=== PATIENT | male | born 1955 | race African-American/Black ===

== ENCOUNTER 2019-05-12 06:38 | Inpatient (IN) | payer OTHER ==
[~2019-05-12] VITALS: Ht 180.3 cm; Wt 108.9 kg
[2019-05-12] VITALS (15 sets, daily range): BP systolic 142–190; BP diastolic 83–105
--- NOTE | 2019-05-12 03:00 | Pre-op HX & Phy Repo 2 SIG ---
DATE OF ADMISSION: 05/12/2019 ATTENDING PHYSICIAN: Boris Gonzalez M.D. REASON FOR ADMISSION: Anterior cervical discectomy and fusion. The patient is scheduled for surgery on 05/12/2019. HISTORY OF PRESENT ILLNESS: The patient is a 64-year-old male, who was in his usual state of health until July 23, 2017, when he reportedly sustained a fall while visiting a friend's house. Due to the fall the patient suffered injury to his neck, back, and left lower extremity. The patient currently complains of left arm pain, left lower extremity pain, and numbness of the left hand. He has been evaluated by Dr. Gonzalez and diagnosed with C-spine injury and disk disease. He is currently scheduled for anterior cervical discectomy and fusion. The patient denies history of coronary artery disease, but has been complaining of substernal chest pain and chest tightness. In view of his symptoms of chest pain, in preparation for his upcoming surgery, he underwent an exercise echo study, which did not show evidence of significant ischemia. The patient exercised for a short duration of 4 minutes, had frequent PVCs, but did not manifest ischemia by EKG or by echocardiogram, and the study was non-ischemic with poor exercise tolerance. Patient has been started on Metoprolol in preparation for his surgery. The patient walks about two times a week, but does not exercise on a regular basis. PAST MEDICAL HISTORY: 1. Hypertension. 2. Status post removal of a cyst from his back. 3. Obesity ALLERGIES: None known. MEDICATIONS: Include baby aspirin, benazepril/hydrochlorothiazide 20/25 daily, and metoprolol 50 mg daily which has been started recently. SOCIAL HISTORY: The patient is single, has one child. 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 He does not smoke and does not drink. REVIEW OF SYSTEMS: GENERAL: Complains of weight gain. He has occasional fever without chills or night sweats. HEENT: Denies headache or sinus problem. PULMONARY: Denies cough or sputum production. CARDIOVASCULAR: Complains of chest pain as described above. Denies palpitations, PND, orthopnea, or lower extremity edema. GASTROINTESTINAL: Denies dysphagia, dyspepsia, abdominal pain, nausea, vomiting, diarrhea, or constipation. GENITOURINARY: Denies dysuria or hematuria. MUSCULOSKELETAL: As noted above. NEUROLOGIC: Complains of paresthesias of the left upper extremity. PHYSICAL EXAMINATION: VITAL SIGNS: Blood pressure was 140/90, heart rate 70, temperature afebrile. Weight is 246 pounds, height is 5 feet 9 inches, and BMI is 36.5. HEENT: Unremarkable. NECK: Nontender, but has limited range of motion. LUNGS: Clear without rales or wheezes. CARDIAC: S1 and S2 are normal without S3 or S4. Jugular venous pressure is normal. ABDOMEN: Soft and nontender with obesity. Bowel sounds are present. EXTREMITIES: Without cyanosis, clubbing, or edema. DIAGNOSTIC AND LABORATORY DATA: Echocardiogram showed normal LV wall motion and ejection fraction with mild aortic insufficiency. Exercise echo was nonischemic, but frequent PVCs are noted during exercise. Laboratory data reviewed. Electrolytes are within normal limits. Liver panel is within normal limits. Creatinine is 1.6. Cholesterol is 168, LDL is 100. Thyroid panel within normal limits. Hemoglobin is 12.6, hematocrit 38.0. PT and PTT within normal limits. Hemoglobin A1c is 5.6. Urine is negative. Nasal culture showed light growth of MRSA, which is sensitive to Cipro, tetracycline, clindamycin, and vancomycin. EKG showed sinus bradycardia at 56 beats per minute with borderline left axis deviation and possible left ventricular hypertrophy. IMPRESSION: 1. Hypertension with moderate control. 2. Obesity. 3. Chest pain, nonischemic. 4. PVCs on exercise echo study. 5. Status post slip and fall with C-spine injury and radiculopathy. 6. Positive nasal culture for mRSA- most likely due to colonization PLAN AND SUGGESTIONS: The patient has been started on metoprolol-XL 50 mg daily in view of hypertension and PVCs in preparation for upcoming surgery. He will be continued on his usual medications and is stable to proceed with surgery. He has been advised to stop aspirin and nonsteroidal anti-inflammatories one week prior to surgery. The patient will be followed postoperatively and will resume oral medications and we will add additional medications as necessary. Presence of light growth of MRSA is most probably due to colonization and does not require treatment at this time. If necessary, isolation precaution will be instituted while in the hospital. Dr. Gonzalez, thank you for allowing me to participate in the care of this patient. I will be happy to follow with you as necessary. Mychal Son M.D. DR: ADAM JOB#: [id number] CC: Mychal Son M.D.; Fax#: [phone] [facility]
[~2019-05-12 06:38] MED LIST: BENAZEPRIL HCL20 MG ORAL; METOPROLOL SUCC50 MG ORAL
[2019-05-12] MEDS ORDERED: ceFAZolin sod 2 GM in D5W 110 ML IVPB ONE (07:00)
--- NOTE | 2019-05-12 07:29 | Pre-Procedure Note/Attestation ---
Pre-Procedure Note/Attestation Complete Prior to Procedure Planned Procedure: not applicable Procedure Narrative: ACDF C34,45,56 Indications for Procedure Pre-Operative Diagnosis: herniation C34,45,56 Attestation I attest that I discussed the nature of the procedure; its benefits; risks and complications; and alternatives (and the risks and benefits of such alternatives ), prior to the procedure, with the patient (or the patient's legal medical office representative). I attest that, if there was a reasonable possibility of needing a blood transfusion, the patient (or the patient's legal medical office representative) was given the [facility] standardized written summary, pursuant to the David [place] Blood Safety Act ([place] Health and Safety Code # 1645, as amended). I attest that I re-evaluated the patient just prior to the surgery and that there has been no change in the patient's H&P, except as documented below: Boris Gonzalez MD May 12, 2019 07:29
[2019-05-12] MEDS ORDERED: HYDROcodone/Acetamin 7.5/325 tab ORAL PRN ×3 (07:30→08:30)
[2019-05-12] MEDS ORDERED: Morphine Sulfate 4mg/ml Inj (IV USE ONLY) IV PRN (07:30)
[2019-05-12] MEDS ORDERED: Chloraseptic Spray 20mL Bottle ORAL PRN (07:30)
[2019-05-12] MEDS ORDERED: Naloxone 0.4mg/ml Inj IVP PRN (07:30)
[2019-05-12] MEDS ORDERED: Metoclopramide 10mg/2ml Inj IVP PRN ×2 (07:30→08:30)
[2019-05-12] MEDS ORDERED: HYDROmorphone 1mg/ml Carpuject IVP PRN (07:30)
[2019-05-12] MEDS ORDERED: Milk of Magnesia 30ml Ud ORAL PRN (07:30)
[2019-05-12] MEDS ORDERED: HYDROcodone/Acetamin 5/325 tab ORAL PRN ×2 (07:30→08:30)
[2019-05-12] MEDS ORDERED: Morphine Sulfate 2mg/ml Inj(IV/IM USE ONLY) IV PRN (07:30)
--- NOTE | 2019-05-12 07:30 | Brief Operative Note ---
Immediate Post Operative Note Operative Note Chief Complaint: herniation radiculopathy Pre-op Diagnosis: herniation C34,45,56 Procedure: ACDF C34,45,56 Post-op Diagnosis: same as pre-op Findings: consistent w/pre-op dx studies Surgeon: Lisa Sewer Digger: Antonio Anesthesiologist: Anesthesia: general Specimen: none Complications: none Condition: stable Fluids: IVF Estimated Blood Loss: minimal Drains: none Implant(s) used?: Yes - Nuvasive interlock C x3, screws 13mmx9 Boris Gonzalez MD May 12, 2019 07:30
[2019-05-12] MEDS ORDERED: Bupivacaine w/Epi 0.5% 30ml Vial INJ ONE (07:50)
[2019-05-12] MEDS ORDERED: Bacitracin 50000 Units Vial ONE (07:50)
[2019-05-12] MEDS ORDERED: Thrombin 5000 units TOPIC ONE (07:50)
[2019-05-12] MEDS ORDERED: Gelfoam Size TOPIC ONE (07:50)
[2019-05-12] MEDS ORDERED: Vancomycin 1gm vial IVPB ONE (07:50)
[2019-05-12] MEDS ORDERED: LR 1000ml 1,000 ML IVLG SCH (08:20)
--- NOTE | 2019-05-12 08:22 | Anethesia Preoperative Eval ---
Anesthesia Pre-op PMH/ROS General Date of Evaluation: May 12, 2019 Time of Evaluation: 09:47 Anesthesiologist: Lyla ASA Score: ASA 3 Mallampati Score Class I : Soft palate, uvula, fauces, pillars visible Class II: Soft palate, uvula, fauces visible Class III: Soft palate, base of uvula visible Class IV: Only hard plate visible Mallampati Classification: Class III Surgeon: Lisa Diagnosis: Neck Pain Surgical Procedure: ACDF C3-4,C4-5,C5-6 Family History: no anesthesia problems Allergies: Coded Allergies: No Known Allergies (Unverified , 05/12/19) Medications: see eMAR Patient NPO?: Yes NPO Date: May 11, 2019 NPO Time: 1999 Past Medical History Cardiovascular: Reports: HTN Other: obesity - BMI 35 Anesthesia Pre-op Phys. Exam Physician Exam Last Vital Signs Date Time Temp Pulse Resp B/P (MAP) Pulse Ox O2 Delivery O2 Flow Rate FiO2 05/12/19 07:23 Room Air 05/12/19 07:18 97.3 50 19 142/83 (102) 100 Constitutional: NAD Neurologic: CN 2-12 intact Cardiovascular: RRR Respiratory: CTA Gastrointestinal: S/NT/ND Airway Exam Mallampati Score: Class III MO: limited ROM: limited Teeth: missing, intact Anesthesia Pre-op A/P Risk Assessment & Plan Assessment: ASA 3 Plan: GA, SED, GlideScope Go Status Change Before Surgery: No Pre-Antibiotics Dru Grams Ancef IV Given Within 1 Hr of Incision: Yes Time Given: 10:01 Jorje Arita MD May 12, 2019 08:22
[2019-05-12] MEDS ORDERED: Lidocaine 1% MPF 10mg/ml 5ml ONE (08:24)
[2019-05-12] MEDS ORDERED: Lidocaine 1% Plain 30 ml INJ ONE ×2 (08:24→11:25)
[2019-05-12] MEDS ORDERED: Sodium Chloride 10ml vial INJ ONE (08:24)
[2019-05-12] MEDS ORDERED: Labetalol 5mg/ml 20ml vial IV PRN (08:30)
[2019-05-12] MEDS ORDERED: Hydromorphone 0.5mg/0.5ml inj IVP PRN (08:30)
[2019-05-12] MEDS ORDERED: DiphenhydrAMINE 50mg/ml Inj IVP PRN (08:30)
[2019-05-12] MEDS ORDERED: Ketorolac 30mg Inj IV PRN ×2 (08:30)
[2019-05-12] MEDS ORDERED: oxyCODONE HCL/Acetaminophen 5/325mg ORAL PRN (08:30)
[2019-05-12] MEDS ORDERED: Acetaminophen (Non formulary) 100 ML IV ONE (08:30)
[2019-05-12] MEDS ORDERED: Meperidine 50mg/ml Inj(FOR RIGORS ONLY) IVP PRN (08:30)
[2019-05-12] MEDS ORDERED: fentaNYL 100 mcg/2 mL IV PRN (08:30)
[2019-05-12] MEDS ORDERED: LORazepam Inj 2mg/ml 1ml IV PRN (08:30)
[2019-05-12] MEDS ORDERED: Midazolam 2mg/2ml Inj IVP PRN (08:30)
[2019-05-12] MEDS ORDERED: Atropine Sulfate 0.4mg/ml inj IVP PRN (08:30)
[2019-05-12] MEDS ORDERED: Ketamine 500mg Inj ONE (08:34)
[2019-05-12] MEDS: Docusate 100mg cap ORAL SCH ×2 (09:00→18:26)
[2019-05-12] MEDS ORDERED: Zemuron 50mg/5ml Inj IV ONE (09:04)
--- NOTE | 2019-05-12 09:52 | Immediate Post-Op Evaluation ---
Immediate Post-Op Evalulation Immediate Post-Op Evalulation Procedure: ACDF C3-4,C4-5,C5-6 Date of Evaluation: May 12, 2019 Time of Evaluation: 13:42 IV Fluids: 1100 LR Blood Products: 0 Estimated Blood Loss: 50 Urinary Output: 300 Blood Pressure Systolic: 188 Blood Pressure Diastolic: 103 Pulse Rate: 73 Respiratory Rate: 16 O2 Sat by Pulse Oximetry: 99 Temperature (Fahrenheit): 97.4 Pain Score (1-10): 2 Nausea: No Vomiting: No Complications 0 Patient Status: awake, reacts, patent, extubated, none Hydration Status: adequate Dru Grams Ancef IV Given Within 1 Hr of Incision: Yes Time Given: 10:01 Jorje Arita MD May 12, 2019 09:52
[2019-05-12] MEDS ORDERED: Sterile Water Irrig 1000ml IRRIG ONE (10:00)
[2019-05-12] MEDS ORDERED: LR 1000ml ONE (10:00)
[2019-05-12] MEDS ORDERED: NS Irrig 1000ml ONE (10:00)
[2019-05-12] MEDS ORDERED: Neostigmine 1mg/ml 10ml Inj ONE (10:00)
[2019-05-12] MEDS ORDERED: Phenylephrine 10mg/ml Vial ONE (10:18)
[2019-05-12] MEDS ORDERED: Glycopyrrolate 0.2mg/ml 1ml Vial ONE ×2 (10:31→12:41)
--- NOTE | 2019-05-12 10:34 | NUR ---
CASE MANAGEMENT:REVIEW 64 YR OLD MALE HERE FOR ELECTIVE SURGERY SI: HERNIATION RADICULOPATHY 97.3 50 19 142/83 100% ON RA IS: TO SURGERY FOR ACDF C34,45,56 IV ANCEF Q8HRS IV DECADRON Q6HRS : TO MED/SURG 3 EAST POST OP
[2019-05-12] MEDS ORDERED: fentaNYL 100 mcg/2 mL IV ONE (12:03)
--- NOTE | 2019-05-12 14:50 | NUR ---
NURSE NOTES: Patient arrived on unit via hospital bed. Stable. Denies pain. Surgical site clean and dry. Pt receiving oxygen as ordered. Patient oriented to room, call light, and unit. Patient encouraged to use call light for assistance, verbalized understanding. Patient is in bed in locked and lowest position with call light within reach. Will continue to monitor.
[2019-05-12] MEDS: NS w/KCl 20mEq 1000ml 1,000 ML IV SCH (16:35)
--- NOTE | 2019-05-12 16:47 | Diagnostic Imaging Report ---
INDICATION: Pain, intraoperative TECHNIQUE: Intraoperative imaging Fluoroscopy time: 3.7 seconds Total dose: 0.98462 mGym2 Total number of images: 4 COMPARISON: None FINDINGS: Intraoperative images demonstrates surgical needle is projected over C3 and C5. Subsequent image demonstrates surgical tool projecting at the level of C5-6 disc. Subsequent images document placement of anterior fusion hardware at C3-4, C4-5 and C5-6. IMPRESSION: Intraoperative imaging, as described
[2019-05-12] MEDS: Dexamethasone 4mg/ml vial IVP SCH (18:26)
[2019-05-12] MEDS: ceFAZolin sod 1 GM in D5W 55 ML IV SCH (18:26)
--- NOTE | 2019-05-12 19:00 | Operative Note - Dictated ---
DATE OF OPERATION: 05/12/2019 SURGEON: Boris Gonzalez MD, Orthopaedic Spine Surgeon. HEAD OF MATHEMATICS: Andrea Alvarez M.D. PREOPERATIVE DIAGNOSES: 1. Intractable neck pain. 2. Radiculopathy. 3. Herniation, C3-C4, C4-C5, C5-C6. 4. Neural foraminal stenosis, C3-C4, C4-C5, C5-C6. 5. Stenosis. POSTOPERATIVE DIAGNOSES: 1. Intractable neck pain. 2. Radiculopathy. 3. Herniation, C3-C4, C4-C5, C5-C6. 4. Neural foraminal stenosis, C3-C4, C4-C5, C5-C6. 5. Stenosis. PROCEDURE PERFORMED: 1. Anterior cervical discectomy and fusion of C3-C4 using NuVasive Interlock-C, size 6 with a total of three screws of 13 mm, with the insertion of 1 mL of allograft Osteocel bone; anterior cervical discectomy and fusion of C4-C5 using NuVasive Interlock-C, size 6 with a total of three screws of 13 mm, with the insertion of 1 mL of allograft Osteocel bone; anterior cervical discectomy and fusion of C5-C6 using NuVasive Interlock-C, size 6 with a total of three screws of 13 mm, with the insertion of 1 mL of allograft Osteocel bone. 2. Use of intraoperative microscope. 3. Motor-evoked potential monitoring. 4. Somatosensory-evoked potential monitoring. 5. Supervision and interpretation of fluoroscopy. COMPLICATIONS: None. ANESTHESIA: General. ESTIMATED BLOOD LOSS: Less than 100 mL. INDICATIONS FOR SURGERY: This patient is a 64-year-old male who has a history of intractable neck pain; radiculopathy; herniation, C3-C4, C4-C5, C5-C6; neural foraminal stenosis, C3-C4, C4-C5, C5-C6; stenosis. We tried a course of conservative management, but despite this course, there was still a significant component of persistent, recalcitrant neck pain and arm pain. The MRI demonstrated significant neural foraminal compromise secondary to disc herniations at C3-C4, C4-C5, C5-C6. We had a long discussion with Rogerio regarding the risks and benefits of surgery. Our discussion included but was not limited to nonoperative management, chiropractic management, another epidural steroid injection as well as definitive management in the form of surgery. We recommended an anterior cervical discectomy and fusion of C3-C4, C4-C5, C5-C6 as final definitive management. We reviewed the risks and benefits of surgery with the patient. Our discussion included a comprehensive review of the clinical issues and the nature of the clinical decision. We reviewed the alternatives, including doing nothing. The patient elected to proceed accordingly with anterior cervical discectomy and fusion of C3-C4, C4-C5, C5-C6. We had a long discussion regarding the risks, alternatives, and benefits of surgery. Our description of the risks included a discussion in person as well as a signed consent which detailed all pertinent risks from the procedure itself. Briefly, our discussion included but was not limited to infection, bleeding, pseudarthrosis, spinal cord injury, neurovascular injury, dural tear, CSF leak, neuropathy, paralysis, permanent weakness/drop foot/drop arm, paresthesias, blindness, palsy, and weakness. The patient understood there may be a need for a revision surgery or additional procedures. Approach-related complications including dysphonia, dysphagia, blindness, permanent vocal cord and neural injury, hematoma, swallowing and breathing difficulty. Medical complications were reviewed including liver, kidney, shock, cardiopulmonary failure, anesthesia complications including , swelling, damage to the musculature, larynx/voice injury or loss, esophagus/throat, trachea, blood vessels and muscles/muscular sprain and lungs/pneumothorax during this surgical procedure; injury to deeper structures may be temporary or permanent. After this review of risks, the patient understood these and elected to proceed. A written and verbal consent was given. We discussed the pros and cons of all the alternatives. We discussed the uncertainties associated with the decision. Afterward, I assessed the patient's understanding and explored his preferences. All questions were answered and no guarantees were given. Medical clearance was obtained prior to surgery. INTRAOPERATIVE FINDINGS: At C3-C4, this was the worst of the levels. At this level, there was appropriate disc height. There was significant altercation of the posterior longitudinal ligament noted with severe impaction and pressure on the thecal sac and spinal cord posterior to this. This level was considerably difficult to completely and thoroughly decompress, however, upon decompression, there was sufficient space made available for the thecal sac, spinal cord, and neural foramina bilaterally. At C4-C5, the disc itself was soft, spongy, appropriate disc height. There was a tear noted in the posterior longitudinal ligament, which was left-sided. Posterior to this tear, we noted severe compression on the neural foraminal elements again left-sided. There was also a large bony shell which appeared to be a reaction as a result of some type of traumatic event on the posterior longitudinal ligament/disc/uncinate process, which occupied from the line extending from the midpoint of the vertebral body to the lateral foramen on the left. At C5-C6, there was appropriate disc height with a spongy disc inside. This disc was not calcified. This disc demonstrated . DESCRIPTION OF PROCEDURE: Under the benefit of general endotracheal anesthesia and with the assistance of the entire operative team, the patient was moved from the rney onto the operative table in the supine position. The head was secured and carefully positioned appropriately. Bilateral arms were secured with Gel Pads and foam and all bony prominences were padded. For the bilateral lower extremities, SCD and CHANTAL hose were placed for DVT prophylaxis. A surgical timeout was called which corroborated our planned procedure of anterior cervical discectomy and fusion of C3-C4, C4-C5, C5-C6. Preoperative antibiotics were administered within 30 minutes of the incision for antibiotic prophylaxis. Using lateral fluoroscopic radiography, the operative levels were delineated. Next, the wound was prepped and draped with chlorhexidine and sterile drapes. An incision was based on lateral fluoroscopy and we centered our incision at the C3-C4, C4-C5, C5-C6 interspace and next using a standard Levine-Yates anterior-based approach, the incision was taken down through the skin and subcutaneous tissues until the vertebral bodies and their corresponding disc spaces were visualized. A needle was placed into the interspace to confirm placement of the operative interspace and we performed the remainder of procedure under microscopic visualization. Next, using bipolar and Bovie cautery to ensure meticulous hemostasis, the longus colli was mobilized bilaterally and retractors were placed deep to the longus colli bilaterally to address retraction. Next, we turned our attention to the radical anterior discectomy. This was initially performed at C5-C6 first by using a 15 blade scalpel followed by narrow pituitaries and a Microsect 5-B curette was used to denude the endplate of all cartilaginous tissue. Next, using a [employer] AM8 drill bit, the partial vertebrectomy was performed in a dpvx-co-vhil and iojjj-cg-cuqxs fashion, and ultimately the posterior uncinate joints bilaterally and posterior osteophytic lips and margins causing central and lateral impingement were carefully denuded until visualization of the posterior longitudinal ligament was possible. An endplate preparation was performed in the exact same fashion using an intervertebral program clinician, sequential distraction was obtained throughout the disc space. We saw a tear/rent in the PLL and this was carefully mobilized and dissected using a Microsect 1-B curette until we visualized a broad-based disc herniation with compression of the spinal cord as well as neural foramina which was left-sided. This neural foraminal compression was carefully resected using a Kerrison-1 and Kerrison-2 rongeurs until complete decompression of the spinal cord was visualized and complete decompression of the neural foramina and nerve root therein as well as the axilla and lateral margin of the nerve root was visualized and subsequently completely decompressed. The family was notified at one-hour intervals throughout the procedure to provide for consistent updates. Next, we turned our attention to the radical anterior discectomy at the C4-C5 level, performed first by using a 15 blade scalpel followed by narrow pituitaries and a Microsect 5-B curette was used to denude the endplate of all cartilaginous tissue. Next, using a [employer] AM8 drill bit, the partial vertebrectomy was performed in a hrgt-ov-sxcl and ehued-gy-qxiiy fashion, and ultimately the posterior uncinate joints bilaterally and posterior osteophytic lips and margins causing central and lateral impingement were carefully denuded until visualization of the posterior longitudinal ligament was possible. An endplate preparation was performed in the exact same fashion using an intervertebral program clinician, sequential distraction was obtained throughout the disc space. We saw a tear/rent in the PLL and this was carefully mobilized and dissected using a Microsect 1-B curette until we visualized a broad-based disc herniation with compression of the spinal cord as well neural foramina which was left-sided. This neural foraminal compression was carefully resected using a Kerrison-1 and Kerrison-2 rongeurs until complete decompression of the spinal cord was visualized and complete decompression of the neural foramina and nerve root therein as well as the axilla and lateral margin of the nerve root was visualized and subsequently completely decompressed. Next, we turned our attention to the radical anterior discectomy at the C3-C4 level, performed first by using a 15 blade scalpel followed by narrow pituitaries and a Microsect 5-B curette was used to denude the endplate of all cartilaginous tissue. Next, using a [employer] AM8 drill bit, the partial vertebrectomy was performed in a rblf-ap-gbpe and tjhkg-mn-iqkoy fashion, and ultimately the posterior uncinate joints bilaterally and posterior osteophytic lips and margins causing central and lateral impingement were carefully denuded until visualization of the posterior longitudinal ligament was possible. An endplate preparation was performed in the exact same fashion using an intervertebral program clinician, sequential distraction was obtained throughout the disc space. We saw a tear/rent in the PLL and this was carefully mobilized and dissected using a Microsect 1-B curette until we visualized a broad-based disc herniation with compression of the spinal cord as well neural foramina which was left-sided. This neural foraminal compression was carefully resected using a Kerrison-1 and Kerrison-2 rongeurs until complete decompression of the spinal cord was visualized and complete decompression of the neural foramina and nerve root therein as well as the axilla and lateral margin of the nerve root was visualized and subsequently completely decompressed. We next turned our attention towards trialing our implant within the disc space. We initially tried size 5 and afterwards size 6 trial from the NuVasive system at each level, which appeared to be appropriate under AP and lateral fluoroscopy as well as in terms of its height, depth, width, and lack of toggle. The PEEK (polyetheretherketone) interbody cages were then both packed with allograft bone from Osteocel and local autograft bone matrix. Next, these were then carefully advanced and secured into their intervertebral spaces under direct visualization and with supervision of AP and lateral fluoroscopic views. This was then performed at the next level, C3-C4. We initially tried size 5 and afterwards size 6 trial from the NuVasive system at this level, which appeared to be appropriate under AP and lateral fluoroscopy as well as in terms of its height, depth, width, and lack of toggle. The PEEK (polyetheretherketone) interbody cages were then both packed with allograft bone from Osteocel and local autograft bone matrix. Next, these were then carefully advanced and secured into their intervertebral spaces under direct visualization and with supervision of AP and lateral fluoroscopic views. We next turned our attention towards plating. Plating was performed at C5-C6 with NuVasive Interlock-C plating system. A total of three screws, size 13 mm in length were inserted and confirmed under AP and lateral fluoroscopy and confirmed to be in excellent position. This was then performed at the next level, C4-C5. Plating was performed with NuVasive Interlock-C plating system. A total of three screws, size 13 mm in length were inserted and confirmed under AP and lateral fluoroscopy and confirmed to be in excellent position. This was then performed at the next level, C3-C4. Plating was performed with NuVasive Interlock-C plating system. A total of three screws, size 13 mm in length were inserted and confirmed under AP and lateral fluoroscopy and confirmed to be in excellent position. After a finger sweep, we confirmed removal of all sponges. The retractor was removed and we next turned our attention to meticulous hemostasis with FloSeal and bipolar cautery. After the sponge and needle count was again found to be correct with our second count, we next turned our attention to closure. The wound was again copiously irrigated with antibiotic-impregnated saline. Closure consisted of 4-0 clear nylon for the platysma, and 6-0 clear nylon for the superficial skin. Final skin closure and dressings consisted of Dermabond. Prior to final closure, a final radiograph was obtained which demonstrated the hardware was intact with excellent position throughout. The patient tolerated the procedure well. The patient was carefully extubated after the conclusion of surgery. We discussed the findings of the surgery with the family upon completion of the case. At this point, the patient was transferred to the spine floor for further observation. Boris Gonzalez M.D. DR: Gonzalo JOB#: [id number] CC:
--- NOTE | 2019-05-12 19:30 | NUR ---
NURSE NOTES:Patient received from ANGELA Ortega Patient denies any pain at this time . no s/s of distress noted . anterior cervical surgical dressing C/D/I .Rfa g#18 NS WITH KCL 20 MEQ at 100 cc /hr infusing well . Patient uses urinals and voided freely to yellow urine . Patient on Bilateral lower Extremities ONSCDS in place .IS at bedside patient tolerating well.Safety/ fall precautions call light within reach . bed in low position . will continue to monitor. Addendum: 05/12/19 at 2318 by ORLANDO CRAMER LVN Patient on o2 2l via n/c on and anterior cervical surgical site continuous ice pack in place.
--- NOTE | 2019-05-12 19:30 | NUR ---
HAND-OFF: Report given to Samira DENG. Patient is stable.
--- NOTE | 2019-05-12 20:52 | NUR ---
NURSE NOTES:Patient vital sign reassess t 7 Addendum: 05/13/19 at 0513 by ORLANDO CRAMER LVN pls disregards this notes .
--- NOTE | 2019-05-12 20:52 | NUR ---
NURSE NOTES:Patient vital sign reassess T 97.2 P68/MIN. R18/MIN. B/P 159/88 mmHG SPO2 100% . will continue to monitor .
[2019-05-12] MEDS ORDERED: Metoprolol Succinate XL 50mg tab ORAL SCH (20:57)
--- NOTE | 2019-05-12 21:00 | NUR ---
NURSE NOTES:Patient B/P ELEVATED 181/84 mmhg R 20 /MIN. P69/MIN. T97.0 SPO2 98%. CALL DR. Gonzalez. Boris Notified with new blood pressure medications orders And carried out. and stated he will call DR. Valeria Garcia..
[2019-05-12] MEDS: Morphine Sulfate 4mg/ml Inj (IV USE ONLY) IV PRN (23:08)
--- NOTE | 2019-05-12 23:20 | NUR ---
NURSE NOTES:Patient voided via urinals 300 cc patient stated I have difficulty of urination . Notified DR. Lisa PETERSEN and received new orders bladder scan and straight cath , carried out
[2019-05-13 00:15] VITALS: BP 156/80
[2019-05-13] MEDS: Dexamethasone 4mg/ml vial IVP SCH ×3 (00:19→12:13)
--- NOTE | 2019-05-13 00:58 | NUR ---
NURSE NOTES:DR. Huy Horta Call and notified blood pressure BP 159/88 mm hg P68/MIN. 18/ min. . T 97.2 at 20:52 pm after patient taking B/P meds and notified PVR scan 568 ML and straight cath done, obtained 550 ml of clear yellow urine.No new orders given.
[2019-05-13] MEDS: NS w/KCl 20mEq 1000ml 1,000 ML IV SCH ×2 (01:28→12:00)
[2019-05-13] MEDS: ceFAZolin sod 1 GM in D5W 55 ML IV SCH ×2 (02:06→11:04)
[2019-05-13 04:00] VITALS: BP 157/79
[2019-05-13] MEDS: Morphine Sulfate 4mg/ml Inj (IV USE ONLY) IV PRN (04:59)
--- NOTE | 2019-05-13 05:14 | NUR ---
NURSE NOTES:Patient voided 300 cc freely to yellow urine at this time .will continue to monitor.
--- NOTE | 2019-05-13 07:15 | NUR ---
HAND-OFF: Report given to KARLEE SANFORD R.N.
--- NOTE | 2019-05-13 07:46 | NUR ---
NURSE NOTES: Received report from ISH Hogan. Pt a/o x 4, in bed. No respiratory distress noted. Denies any pain at this time. Neck surgical dressing site is C/D/I. Rt FA is patent. Regular IV is running at this time. Bed in lowest position, call light within reach. Will continue to monitor.
[2019-05-13 08:00] VITALS: BP 162/82
[2019-05-13] MEDS ORDERED: Metoprolol Succinate XL 50mg tab ORAL SCH (09:00)
[2019-05-13] MEDS ORDERED: Benazepril 10mg tab ORAL SCH (09:00)
--- NOTE | 2019-05-13 09:22 | 48 Hour Post Anesthesia Eval ---
Post Anesthesia Evaluation Procedure: ACDF C3-4,C4-5,C5-6 Date of Evaluation: May 13, 2019 Time of Evaluation: 09:21 Blood Pressure Systolic: 148 0: 78 Pulse Rate: 68 Respiratory Rate: 20 Temperature (Fahrenheit): 97.6 O2 Sat by Pulse Oximetry: 98 Airway: patent Nausea: No Vomiting: No Pain Intensity: 2 Hydration Status: adequate Cardiopulmonary Status: stable Mental Status/LOC: patient returned to baseline Follow-up Care/Observations: n/a Post-Anesthesia Complications: none Follow-up care needed: ready to discharge Silver Moore MD May 13, 2019 09:22
[2019-05-13] MEDS: Docusate 100mg cap ORAL SCH (09:41)
[2019-05-13 12:00] VITALS: BP 137/75
--- NOTE | 2019-05-13 12:23 | NUR ---
PT Note Patient was educated on cervical spine care, safety precautions, HEP. Patient was given a copy of the HEP's. Patient is independent in mobility and gait without any AD. No further PT needed at this time. Addendum: 05/13/19 at 1224 by SUREKHA BOO PT Amended: Links added.
--- NOTE | 2019-05-13 13:55 | Cardiology Progress Note ---
Assessment/Plan Status Narrative 1. s/p Fall with C spine injury 2. s/p C spine fusion 3. HTN 4. Obesity Assessment/Plan Doing well post OP Continue meds DC home F/U with Dr. Gonzalez Patient advised to continue meds. Weight loss discussed. F/U with PMD for HTN Subjective Cardiovascular: Reports: no symptoms Respiratory: Reports: no symptoms Gastrointestinal/Abdominal: Reports: no symptoms Genitourinary: Reports: no symptoms Subjective s/p C spine surgery yesterday. Had HTN last nite, improved after bladder emptied. Ambulating well. Tolerating PO food w.o. difficulty. Objective Last 24 Hour Vital Signs Date Time Temp Pulse Resp B/P (MAP) Pulse Ox O2 Delivery O2 Flow Rate FiO2 05/13/19 12:00 98.4 60 18 137/75 (95) 99 05/13/19 09:42 62 162/82 05/13/19 09:41 162/82 05/13/19 09:22 68 20 98 05/13/19 09:00 Room Air 05/13/19 08:00 97.7 62 20 162/82 (108) 96 05/13/19 06:25 98.0 05/13/19 05:29 98.0 05/13/19 04:00 98.0 63 20 157/79 (105) 97 05/13/19 00:15 98.0 59 20 156/80 (105) 99 05/12/19 23:43 97.9 58 20 168/86 (113) 99 05/12/19 21:05 69 181/84 05/12/19 21:04 181/84 05/12/19 21:00 Nasal Cannula 2.0 05/12/19 20:52 97.2 68 18 159/88 (111) 100 05/12/19 20:28 98.2 67 18 181/84 (116) 100 05/12/19 14:50 98.2 69 18 155/86 (109) 98 05/12/19 14:28 97.5 63 15 162/88 97 Nasal Cannula 3 05/12/19 14:20 62 13 159/93 97 Nasal Cannula 3 05/12/19 14:15 62 14 168/95 98 Nasal Cannula 3 05/12/19 14:13 187/101 05/12/19 14:10 62 15 177/100 98 Nasal Cannula 3 05/12/19 14:00 63 16 188/101 100 Nasal Cannula 3 05/12/19 13:49 62 15 188/104 100 Simple Mask 6 General Appearance: WD/WN, no apparent distress EENT: PERRL/EOMI Neck: limited range of motion Cardiovascular: normal rate, regular rhythm, no gallop/murmur Respiratory/Chest: chest wall non-tender, lungs clear, normal breath sounds, no respiratory distress, no accessory muscle use Abdomen: normal bowel sounds, non tender, soft, no organomegaly, no mass Extremities: normal range of motion, non-tender, normal inspection, no calf tenderness, no swelling Intake and Output 05/12/19 05/13/19 19:00 07:00 Intake Total 1355 ml 2065 ml Output Total 350 ml 2651 ml Balance 1005 ml -586 ml Intake Oral 1210 ml IV Total 1355 ml 855 ml Output Urine Total 300 ml 2650 ml Stool Total 1 ml Estimated Blood Loss 50 ml # Voids 1 8 # Bowel Movements 1 Mychal Son MD May 13, 2019 13:55
[2019-05-13] MEDS ORDERED: NORCO 10-325 T1 EACH ORAL (14:16)
[2019-05-13] MEDS ORDERED: CARISOPRODOL350 MG ORAL (14:17)
--- NOTE | 2019-05-13 14:30 | NUR ---
NURSE NOTES: Discharge instruction was given. IV access, arm band removed. Belongings checked and given to pt. Pt discharged in stable condition.
--- NOTE | 2019-05-15 12:35 | Discharge Summary ---
Discharge Summary Hospital Course Date of Admission May 12, 2019 at 06:38 Date of Discharge May 13, 2019 at 14:30 Admitting Diagnosis herniation C3-4, C4-5, C5-6 Reason for Hospitalization: elective surgery HPI Rogerio Thomson is a 64 year old male who was admitted on May 12, 2019 at 06: 38 for Herniated Nucleus Pulposus,Pain, Radiculopathy Consultations Dr Son -cardio/IM Procedures s/p 05/12/[address] Gonzalez 1. Anterior cervical discectomy and fusion of C3-C4 using NuVasive Interlock-C, size 6 with a total of three screws of 13 mm, with the insertion of 1 mL of allograft Osteocel bone; anterior cervical discectomy and fusion of C4-C5 using NuVasive Interlock-C, size 6 with a total of three screws of 13 mm, with the insertion of 1 mL of allograft Osteocel bone; anterior cervical discectomy and fusion of C5-C6 using NuVasive Interlock-C, size 6 with a total of three screws of 13 mm, with the insertion of 1 mL of allograft Osteocel bone. 2. Use of intraoperative microscope. 3. Motor-evoked potential monitoring. 4. Somatosensory-evoked potential monitoring. 5. Supervision and interpretation of fluoroscopy. Hospital Course Status post surgery course of recovery uneventful initially IV fluids s/p perioperative antibiotics neurovascular status closely monitored, stable incision clean, dry , and intact pain management was addressed ; pain was controlled remained hemodynamically stable ambulated with PT fall precautions maintained; safe for ambulation DVT prophylaxis with SCD provided use of incentive spirometry was encouraged while in the bed slowly started on diet as tolerated, Cepacol lozenges provided for comfort patient was able to tolerate diet, IV fluids discontinued GI prophylaxis provided antiemetics were on board as needed blood pressure was managed with multiple antihypertensive regimen, including SUMEET inhibitor, beta-riccardo , and hydrochlorothiazide weight loss was discussed with patient voided freely bowel regimen instituted patient was stable for discharge discharge instructions provided follow up with surgeon in clinic as outpatient as advised by surgeon FINAL DIAGNOSES s/p fall with C spine injury herniation C3-4, C4-5, C5-6 s/p ACDF C3-4, C4-5,C5-6 HTN Obesity Discharge Medications Continued Medications: Benazepril Hcl* (Benazepril Hcl*) 20 Mg Tablet 20 MG ORAL EVERY 12 HOURS, TAB (This prescription has been renewed) Carisoprodol* (Carisoprodol*) 350 Mg Tablet 350 MG ORAL BID, #90 TAB (This prescription has been renewed) Hydrocodone Bit/Acetaminophen 10-325* (Story 10-325*) 1 Each Tablet 1 TAB ORAL Q8HR PRN for For Pain, #90 TAB 0 Refills (This prescription has been renewed) PRN PAIN Metoprolol Succinate* (Metoprolol Succinate*) 50 Mg Tab.er.24h 50 MG ORAL DAILY, TAB (This prescription has been renewed) Discharge Condition Upon Discharge: stable Discharge Disposition Patient was discharged home Discharge Instructions Discharge Instructions Special Instructions I have been assigned to complete a D/C Summary on this account. I was not involved in the patient management Zeina Her NP May 15, 2019 12:35
== END 2019-05-13 14:30 | disposition home or self-care (01) | DRG 473 ==
LOC: SDSOVERFLO 06:38 → 3E 14:29
PROC: 0RG20A0 Fusion of 2 or more Cervical Vertebral Joints with Interbody Fusion Device, Anterior Approach, Anterior Column, Open Approach (ICD-10-PCS; principal; 2019-05-12 09:00)
PROC: 01N10ZZ Release Cervical Nerve, Open Approach (ICD-10-PCS; principal; 2019-05-12 09:00)
PROC: 00NW0ZZ Release Cervical Spinal Cord, Open Approach (ICD-10-PCS; principal; 2019-05-12 09:00)
PROC: 0RB30ZZ Excision of Cervical Vertebral Disc, Open Approach (ICD-10-PCS; principal; 2019-05-12 09:00)
DX: M50.11 Cervical disc disorder with radiculopathy, high cervical region (principal); W01.0XXS Fall on same level from slipping, tripping and stumbling without subsequent striking against object, sequela; M48.02 Spinal stenosis, cervical region; I10 Essential (primary) hypertension; R07.9 Chest pain, unspecified; E66.9 Obesity, unspecified
CPT/HCPCS: 36415; 72040; 76000; 86850; 86900; 86901; 87081; 94003; 94150; J2370; J2710